=== PATIENT | male | born 1960 | race Caucasian/White ===

== ENCOUNTER 2020-10-09 11:17 | Inpatient (IN) | payer OTHER ==
[~2020-10-09] VITALS: Ht 190.5 cm; Wt 107.6 kg
[~2020-10-09 11:17] MED LIST: ATIVAN IV PRN; DIAZ2TAB PO; HYDR-3101 PO; MORPHINE SULFATE IV PRN; TIZA4TAB2 PO; TRIA1TAB3 PO
--- NOTE | 2020-10-09 13:00 | NUR ---
NEW ORDERS RECEIVED FROM HOSPICE NURSE FOR MORPHINE 4MG IV STAT.
[2020-10-09] MEDS ORDERED: MORPHINE SULFATE ONE ×3 (13:01→18:21)
[2020-10-09] MEDS ORDERED: ATIVAN ONE (13:01)
--- NOTE | 2020-10-09 13:10 | NUR ---
2mg IV Morphine & 1mg IV ativan given by home hospice rn, Aye Araiza.
--- NOTE | 2020-10-09 13:20 | NUR ---
Handed gauge inspectorGIANCARLO Araiza 2g vial of Ativan and two 2mg vials of morphine.
--- NOTE | 2020-10-09 13:30 | PRM.DC ---
Subjective Subjective Date of Discharge: Oct 09, 2020 Time of Request to Discharge: 09:30 Subjective Patient History: Chronic obstructive pulmonary disease G8 MOTHER G8 FATHER Diabetes mellitus G8 FATHER Hypertension G8 MOTHER Review of Systems Constitutional: weakness Respiratory: shortness of breath Psychiatric/Neurological: anxiety, depressed, weakness Exam Vital Signs Vital Signs Date Time Temp Pulse Resp B/P (MAP) Pulse Ox O2 Delivery O2 Flow Rate FiO2 10/03/20 20:15 S/T General Appearance: Alert, Oriented X3, Cooperative, No acute distress HEENT: PERRLA Cardiovascular: Other Abdominal: Soft, No tenderness Extremities: No cyanosis, No edema, No tenderness/swelling Neuro: Normal speech Psych/Mental Status: Other VTE VTE Risk assessment high risk due to COVID and immobilization VTE Risk Total Score: 2 VTE Risk Score VTE Risk: Score 0-1 = Low Risk (Aggressive mobilization; early ambulation; no VTE prophylaxis required) Score 2: Moderate Risk (Intermittent/Pneumatic Compression Device OR Lovenox/Heparin/Coumadin) Score 3-4: High Risk (Intermittent/Pneumatic Compression Device AND Lovenox/Heparin/Coumadin) Score > or =5: Highest Risk (Intermittent/Pneumatic Compression Device AND Lovenox/Heparin/Coumadin) VTE Treatment VTE prophylaxis discontinued secondary to hospice status Reasons not ordering prophylax: Palliative care Objective Vitals and I/O Intake and Output 10/09/20 07:00 Intake Total 220 ml Output Total 600 ml Balance -380 ml General: Alert, Oriented X3, Cooperative, No acute distress, Other HEENT: Atraumatic, PERRLA, EOMI Neck: +2 carotid pulse wo bruit, No LAD Lungs: Other Heart: Regular rate, Normal S1, Normal S2, No murmurs, Gallops, Rubs, Other Extremities: No clubbing, No cyanosis, No edema, No tenderness/swelling Neuro: Normal speech Psych/Mental Status: Mental status NL, Mood NL, Other All Results(Lab/Rad) Current Medications Medications (Trade) Dose Ordered Sig/Danii Route PRN Reason Start Time Stop Time Status Last Admin Dose Admin Lorazepam (Ativan) 2 mg STK-MED ONCE .ROUTE 10/09/20 13:01 10/09/20 13:03 DC Morphine Sulfate (Morphine Sulfate) 2 mg STK-MED ONCE .ROUTE 10/09/20 13:01 10/09/20 13:04 DC Morphine Sulfate (Morphine Sulfate) 2 mg Q2HR PRN IV PAIN 4 - 6 10/09/20 11:05 11/08/20 11:04 UNV Lorazepam (Ativan) 2 mg Q4HR PRN IV ANXIETY 10/09/20 11:05 11/08/20 11:04 UNV Medication Reconciliation No Active Prescriptions or Reported Meds Plan Assessment Assessment Persistent hypoxemic respiratory failure secondary to COVID-19 pneumonia Bilateral interstitial pulmonary infiltrates Resolved acute on chronic renal failure presumptively associated with acute tubular necrosis Episodic delirium with agitation and hallucinations Hypoalbuminemia with mild protein calorie malnutrition Plan: Patient has been discharged from ICU level of care after discussion with patient and acknowledgment by his He will be admitted to inpatient hospice with palliative care measures only and all routine medications discontinued with the exception of Ativan for anxiety and morphine sulfate for pain or discomfort Further management to be unspecified at the direction of hospice Plan My Orders - SYDNEY ARREDONDO MD Procedure Category Date Status Time Lorazepam (Ativan) PHA 10/09/20 Complete 13:01 Morphine Sulfate PHA 10/09/20 Complete (Morphine Sulfate) 13:01 Morphine Sulfate PHA 10/09/20 Logged (Morphine Sulfate) 11:05 Lorazepam (Ativan) PHA 10/09/20 Logged 11:05 SYDNEY ARREDONDO MD Oct 09, 2020 13:30
[2020-10-09] MEDS: MORPHINE SULFATE IV PRN ×2 (14:00→16:50)
--- NOTE | 2020-10-09 14:23 | NUR ---
ironer machine, Aye Araiza, stated that she gave a total of 6mg of IV morphine & 2mg of IV Ativan to pt. drug enforcement administration agent documented on EMAR accordingly. New orders received to change morphine to Q1H & Ativan to Q2H.
[2020-10-09] MEDS ORDERED: MORPHINE SULFATE IV STA (14:24)
[2020-10-09] MEDS ORDERED: ATIVAN IV PRN ×2 (14:30→18:00)
--- NOTE | 2020-10-09 15:17 | PCM.HP ---
History of Present Illness Reason for Visit: (1) Hospice care ICD Code: Z51.5 - Encounter for palliative care SNOMED: 874784716, [id number] (2) Pneumonitis ICD Code: J18.9 - Pneumonia, unspecified organism SNOMED: 623828742 (3) Pneumonia due to COVID-19 virus ICD Code: U07.1 - COVID-19; J12.89 - Other viral pneumonia (4) Acute hypoxemic respiratory failure due to COVID-19 ICD Code: U07.1 - COVID-19; J96.01 - Acute respiratory failure with hypoxia Past Medical History [facility]-Psych: (1) Delirium due to another medical condition ICD Code: F05 - Delirium due to known physiological condition SNOMED: 3320804 PMH-Renal/: (1) Acute renal failure ICD Code: N17.9 - Acute kidney failure, unspecified SNOMED: 02399963 Review of Systems Constitutional: Weakness Respiratory: Shortness of breath, SOB with excertion Neurological: Weakness Allergies: Coded Allergies: No Known Allergies (Unverified , 09/28/20) No Active Prescriptions or Reported Meds VTE VTE Risk Total Score: 2 VTE Risk Score VTE Risk: Score 0-1 = Low Risk (Aggressive mobilization; early ambulation; no VTE prophylaxis required) Score 2: Moderate Risk (Intermittent/Pneumatic Compression Device OR Lovenox/Heparin/Coumadin) Score 3-4: High Risk (Intermittent/Pneumatic Compression Device AND Lovenox/Heparin/Coumadin) Score > or =5: Highest Risk (Intermittent/Pneumatic Compression Device AND Lovenox/Heparin/Coumadin) Reasons not ordering prophylax: Palliative care VTE VTE Present on Admission: No Currently receiving anticoagul: No VTE Risk Total Score: 2 Exam Vital Signs Vital Signs Date Time Temp Pulse Resp B/P (MAP) Pulse Ox O2 Delivery O2 Flow Rate FiO2 10/09/20 15:06 97.6 129 22 82 60.00 10/09/20 11:10 Comfort Anastacio General Appearance: Alert, Oriented X3, Cooperative, mild distress HEENT: Atraumatic, PERRLA, EOMI Respiratory: Other Cardiovascular: Gallops, Other (PVC's) Abdominal: Normal bowel sounds, Soft, No tenderness, No masses Extremities: No cyanosis, No edema, No tenderness/swelling Neuro: Normal speech, Normal tone, Sensation intact Psych/Mental Status: Other (anxious / mildly depressed) Dietary Evaluation Dietary Evaluation Recommendations by RD: Increase Calorie Intake, Add supplement feedings Assessment/Plan Assessment/Plan Assessment/Plan Assessment Persistent subacute hypoxemic respiratory failure Delirium secondary to medical condition Acute renal failure subsequently resolved Hypoalbuminemia with mild protein calorie malnutrition Hospice disposition Plan Patient is being discharged from acute care status and is to be admitted to in patient hospice status with hospice assuming responsibility for ongoing orders Patient History: Chronic obstructive pulmonary disease G8 MOTHER G8 FATHER Diabetes mellitus G8 FATHER Hypertension G8 MOTHER SYDNEY ARREDONDO MD Oct 09, 2020 15:17
--- NOTE | 2020-10-09 17:00 | NUR ---
Pt's O2 decreased from 60L to 30L 100%. Pt's is at bedside.
--- NOTE | 2020-10-09 17:45 | NUR ---
Oxygen was turned from 30L to 20L. at bedside
[2020-10-09] MEDS ORDERED: MORPHINE SULFATE IV PRN (18:00)
--- NOTE | 2020-10-09 18:00 | NUR ---
java techGIANCARLO Araiza at bedside. GIANCARLO handed Aye two 2mg vials of morphine.
--- NOTE | 2020-10-09 18:15 | NUR ---
Oxygen was turned from 20L 100% to 20L 50%. at bedside
--- NOTE | 2020-10-09 18:25 | NUR ---
Oxygen was removed from patient. RR 8 & oxygen saturation was 5%. at bedside
[2020-10-09 18:35] VITALS: BP 0/0
--- NOTE | 2020-10-09 18:35 | NUR ---
Pt at 1835. hemodialysis charge nurse Aye Araiza & at bedside.
== END 2020-10-09 18:35 | disposition expired | DRG 177 ==
LOC: ICU 11:17
PROVIDERS: ADMIT Internal Medicine; ATTEND Internal Medicine
DX: U07.1 COVID-19 (principal); J96.01 Acute respiratory failure with hypoxia; J12.89 Other viral pneumonia; N17.0 Acute kidney failure with tubular necrosis; F05 Delirium due to known physiological condition; E44.1 Mild protein-calorie malnutrition; N18.9 Chronic kidney disease, unspecified; Z51.5 Encounter for palliative care; F41.9 Anxiety disorder, unspecified; Z68.29 Body mass index [BMI] 29.0-29.9, adult; Z83.3 Family history of diabetes mellitus; Z83.6 Family history of other diseases of the respiratory system; Z82.49 Family history of ischemic heart disease and other diseases of the circulatory system
CPT/HCPCS: G0378; J2060